=== PATIENT | female | born 2000 | race Caucasian/White ===

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

== ENCOUNTER 2018-06-19 12:24 | Emergency (ER) | payer BC ==
[~2018-06-19] VITALS: Ht 149.9 cm; Wt 59.0 kg
[2018-06-19 13:06] LABS: URINE BILIRUBIN NEGATIVE (Negative); URINE BLOOD NEGATIVE (Negative); URINE CLARITY SL CLOUDY; URINE COLOR YELLOW; URINE GLUCOSE-RANDOM NEGATIVE (Negative); URINE KETONES TRACE (Negative); URINE LEUKOCYTES-REFLEX TRACE (Negative); URINE NITRITE-REFLEX POSITIVE (Negative); URINE PROTEIN NEGATIVE (Negative); URINE SPECIFIC GRAVITY >= 1.030 (1.005-1.030); URINE UROBILINOGEN 0.2 E.U./dl (0.2-1.0)
[2018-06-19 13:18] LABS: SQUAMOUS >10 Many /LPF (0-3)
[2018-06-19 13:19] LABS: BACTERIA-REFLEX >30 Many /HPF (None Seen); CASTS None Seen /LPF (None Seen); MUCUS >6 Heavy strn/LPF (None Seen); URINE RBC 0-2 Rare /HPF (0-2); URINE WBC-REFLEX 0-5 Rare /HPF (0-5)
[2018-06-19 13:20] LABS: CRYSTALS None Seen /LPF (None Seen)
[2018-06-19 13:34] LABS: ABSOLUTE BASOPHILS 0.1 thou/uL (0.0-0.2); ABSOLUTE EOSINOPHILS 0.1 thou/uL (0.0-0.7); ABSOLUTE MONOCYTES 0.5 thou/uL (0.0-1.2); ABSOLUTE NEUTROPHILS 4.3 thou/uL (1.6-8.1); BASOPHILS 1.1 %; EOSINOPHILS 1.6 %; HEMOGLOBIN 14.9 gm/dL (12.0-15.0); LYMPHOCYTES 28.4 %; MCH 30.3 pg (26.0-34.0); MCHC 33.8 g/dL (28.0-37.0); MCV 89.6 fL (80.0-100.0); MONOCYTES 7.7 %; MPV 11.5 fl. (7.2-11.1); NUCLEATED RBCS 0 /100WBC; PLATELET COUNT* 167 thou/uL (150-400); POLYS 61.2 %; RBC 4.91 mil/uL (4.20-5.00); RDW-CV 13.7 % (10.5-14.5)
[2018-06-19 13:41] LABS: CREATININE 0.8 mg/dL (0.6-1.3); POTASSIUM 3.7 mmol/L (3.5-5.1)
[2018-06-19 13:54] LABS: ALBUMIN 4.1 g/dL (3.4-5.0); TOTAL BILIRUBIN 0.4 mg/dL (<0.1-1.0); TOTAL PROTEIN 7.9 g/dL (6.4-8.2)
[2018-06-19] MEDS ORDERED: KEFLEX500 M1 PO (14:31)
[2018-06-19] MEDS ORDERED: ONDANSETRON HCL4 M2 PO (14:31)
[2018-06-19] MEDS ORDERED: FLAGYL500 M1 PO (14:31)
[2018-06-19 14:43] VITALS: BP 112/50
== END 2018-06-19 14:44 | disposition home or self-care (01) ==
LOC: M.ERS 12:24
PROVIDERS: Nurse Practitioner Family
DX: N76.0 Acute vaginitis (principal); B96.89 Other specified bacterial agents as the cause of diseases classified elsewhere; N39.0 Urinary tract infection, site not specified; K59.00 Constipation, unspecified; R11.2 Nausea with vomiting, unspecified; F90.9 Attention-deficit hyperactivity disorder, unspecified type; Z88.1 Allergy status to other antibiotic agents

== ENCOUNTER 2018-07-02 12:22 | Emergency (ER) | payer BC ==
[~2018-07-02] VITALS: Ht 149.9 cm; Wt 59.0 kg
[~2018-07-02 12:22] MED LIST: FLAGYL500 M1 PO; KEFLEX500 M1 PO; ONDANSETRON HCL4 M2 PO
[2018-07-02 12:45] LABS: URINE BILIRUBIN NEGATIVE (Negative); URINE BLOOD NEGATIVE (Negative); URINE CLARITY CLEAR; URINE COLOR YELLOW; URINE GLUCOSE-RANDOM NEGATIVE (Negative); URINE KETONES NEGATIVE (Negative); URINE LEUKOCYTES-REFLEX NEGATIVE (Negative); URINE NITRITE-REFLEX NEGATIVE (Negative); URINE PROTEIN NEGATIVE (Negative); URINE SPECIFIC GRAVITY >= 1.030 (1.005-1.030); URINE UROBILINOGEN 0.2 E.U./dl (0.2-1.0)
[2018-07-02 14:28] VITALS: BP 110/71
== END 2018-07-02 14:30 | disposition home or self-care (01) ==
LOC: M.ERS 12:22
PROVIDERS: Nurse Practitioner Family
DX: Z32.02 Encounter for pregnancy test, result negative (principal); Z20.2 Contact with and (suspected) exposure to infections with a predominantly sexual mode of transmission; Z70.8 Other sex counseling; Z88.1 Allergy status to other antibiotic agents; F90.9 Attention-deficit hyperactivity disorder, unspecified type

== ENCOUNTER 2018-10-02 13:30 | Emergency (ER) | payer BC ==
[~2018-10-02] VITALS: Ht 149.9 cm; Wt 56.7 kg
[2018-10-02 13:55] LABS: URINE BILIRUBIN NEGATIVE (Negative); URINE BLOOD 3+ (Negative); URINE CLARITY SL CLOUDY; URINE COLOR YELLOW; URINE GLUCOSE-RANDOM NEGATIVE (Negative); URINE KETONES TRACE (Negative); URINE NITRITE-REFLEX NEGATIVE (Negative); URINE PROTEIN 1+ (Negative); URINE SPECIFIC GRAVITY 1.025 (1.005-1.030); URINE UROBILINOGEN 0.2 E.U./dl (0.2-1.0)
[2018-10-02 13:56] LABS: URINE LEUKOCYTES-REFLEX 2+ (Negative)
[2018-10-02 14:04] LABS: MUCUS 4-6 Moderate strn/LPF (None Seen)
[2018-10-02 14:06] LABS: SQUAMOUS >10 Many /LPF (0-3)
[2018-10-02 14:07] LABS: CASTS None Seen /LPF (None Seen); CRYSTALS None Seen /LPF (None Seen)
[2018-10-02 14:08] LABS: URINE WBC-REFLEX >25 Many /HPF (0-5); WBC CLUMPS Few (None Seen)
[2018-10-02 14:09] LABS: BACTERIA-REFLEX 1-9 Few /HPF (None Seen); URINE RBC >20 Many /HPF (0-2)
[2018-10-02 14:09] LABS: ABSOLUTE BASOPHILS 0.1 thou/uL (0.0-0.2); ABSOLUTE EOSINOPHILS 0.1 thou/uL (0.0-0.7); ABSOLUTE LYMPHOCYTES 2.1 thou/uL (0.8-5.3); ABSOLUTE MONOCYTES 0.5 thou/uL (0.0-1.2); ABSOLUTE NEUTROPHILS 8.2 thou/uL (1.6-8.1); BASOPHILS 0.5 %; EOSINOPHILS 0.6 %; HEMATOCRIT 40.3 % (37.0-47.0); HEMOGLOBIN 13.7 gm/dL (12.0-15.0); LYMPHOCYTES 19.4 %; MCV 91.2 fL (80.0-100.0); MONOCYTES 4.3 %; MPV 11.1 fl. (7.2-11.1); NUCLEATED RBCS 0 /100WBC; PLATELET COUNT* 174 thou/uL (150-400); POLYS 75.2 %; RBC 4.42 mil/uL (4.20-5.00); RDW-CV 13.4 % (10.5-14.5)
[2018-10-02 14:15] LABS: CALCIUM 8.8 mg/dL (8.5-10.1); CREATININE 0.9 mg/dL (0.6-1.3); POTASSIUM 3.8 mmol/L (3.5-5.1)
[2018-10-02 14:20] LABS: ALBUMIN 3.5 g/dL (3.4-5.0); TOTAL BILIRUBIN 0.2 mg/dL (<0.1-1.0); TOTAL PROTEIN 7.3 g/dL (6.4-8.2)
[2018-10-02] MEDS ORDERED: NAPROSYN500 MG PO (15:36)
[2018-10-02] MEDS ORDERED: PYRIDIUM100 M1 PO (15:36)
[2018-10-02] MEDS ORDERED: KEFLEX500 M1 PO (15:36)
[2018-10-02 15:49] VITALS: BP 105/56
== END 2018-10-02 15:49 | disposition home or self-care (01) ==
LOC: M.ERS 13:30
PROVIDERS: Nurse Practitioner Family
DX: N39.0 Urinary tract infection, site not specified (principal); F90.9 Attention-deficit hyperactivity disorder, unspecified type; Z88.1 Allergy status to other antibiotic agents

== ENCOUNTER 2020-01-22 15:12 | Emergency (ER) | payer BC ==
[~2020-01-22] VITALS: Ht 149.9 cm; Wt 61.2 kg
[~2020-01-22 15:12] MED LIST changes: +NAPROSYN500 MG PO; +PYRIDIUM100 M1 PO
[2020-01-22] MEDS ORDERED: IBUPROFEN 600600 M1 PO (16:14)
[2020-01-22 16:28] VITALS: BP 121/58
== END 2020-01-22 16:28 | disposition home or self-care (01) ==
LOC: M.ERS 15:12
DX: S93.492A Sprain of other ligament of left ankle, initial encounter (principal); W18.39XA Other fall on same level, initial encounter; Y93.89 Activity, other specified; Y92.89 Other specified places as the place of occurrence of the external cause; Y99.8 Other external cause status